=== PATIENT | male | born 1955 | race Caucasian/White ===

== ENCOUNTER 2017-10-27 05:44 | Emergency (ER) | payer MEDICARE ==
[~2017-10-27] VITALS: Ht 172.7 cm; Wt 89.5 kg
[~2017-10-27 05:44] MED LIST: ALBU8.5H8 IH
[2017-10-27] MEDS ORDERED: bacitracin 15gm ointment TP ONE (07:00)
[2017-10-27] MEDS ORDERED: CEPH250T PO (07:01)
[2017-10-27] MEDS ORDERED: HYDR-3965 PO (07:13)
[2017-10-27 07:20] VITALS: BP 167/107
[2017-10-27] MEDS ORDERED: LIDOcaine 1% (10mg/ml) 2ml vial ONE (07:22)
== END 2017-10-27 07:22 | disposition home or self-care (01) ==
LOC: ER 05:45
DX: S61.432A Puncture wound without foreign body of left hand, initial encounter (principal); I10 Essential (primary) hypertension; W45.8XXA Other foreign body or object entering through skin, initial encounter; Y93.89 Activity, other specified; Y92.89 Other specified places as the place of occurrence of the external cause; Y99.8 Other external cause status
CPT/HCPCS: 73130; 99284; J3490

== ENCOUNTER 2018-04-12 10:08 | Emergency (ER) | payer MEDICARE ==
[~2018-04-12] VITALS: Ht 172.7 cm; Wt 95.0 kg
[2018-04-12] MEDS ORDERED: HYDROcodone/acetaminophen 5mg/325mg tablet PO ONE (11:05)
[2018-04-12] MEDS ORDERED: ketorolac trometh inj. 60 MG/2 ML VIAL IM ONE (11:05)
[2018-04-12] MEDS ORDERED: HYDR-565 PO (11:52)
[2018-04-12] MEDS ORDERED: IBUP-1984 PO (11:52)
[2018-04-12 12:26] VITALS: BP 160/72
== END 2018-04-12 12:28 | disposition home or self-care (01) ==
LOC: ER 10:09
DX: M25.551 Pain in right hip (principal); I10 Essential (primary) hypertension; G89.29 Other chronic pain; Z87.442 Personal history of urinary calculi; Z88.8 Allergy status to other drugs, medicaments and biological substances; Z79.899 Other long term (current) drug therapy
CPT/HCPCS: 73502; 96372; 99284; J1885

== ENCOUNTER 2019-03-01 20:43 | Emergency (ER) | payer MEDICARE ==
[~2019-03-01] VITALS: Ht 172.7 cm; Wt 103.0 kg
[2019-03-01 21:26] LABS: BASOPHILS # (AUTO) 0.1 X10'3 (0-0.2); BASOPHILS % (AUTO) 0.5 % (0-1); EOSINOPHILS % (AUTO) 0.2 % (0-6); HEMATOCRIT 43.3 % (42.0-52.0); HEMOGLOBIN 14.7 g/dl (14.0-17.9); LYMPHOCYTES # (AUTO) 1.5 X10'3 (1.1-4.8); LYMPHOCYTES % (AUTO) 13.1 % (21-51); MEAN CORPUSCULAR HGB CONC 33.9 g/dL (33.0-36.5); MEAN CORPUSCULAR VOLUME 88.3 FL (78-98); MEAN PLATELET VOLUME 10.5 FL (7.4-10.4); MONOCYTES % (AUTO) 8.5 % (2-12); NEUTROPHILS # (AUTO) 9.1 X10'3 (1.8-7.7); NEUTROPHILS % (AUTO) 77.7 % (42-75); PLATELET COUNT 156 X10'3 (140-440); RED CELL DISTRIBUTION WIDTH 13.3 % (11.5-14.5); WHITE BLOOD COUNT 11.7 X10'3 (4.5-11.0)
[2019-03-01 21:34] LABS: ALANINE AMINOTRANSFERASE 30 U/L (12-78); ALBUMIN 3.7 G/DL (3.4-5.0); ALBUMIN/GLOBULIN RATIO 1.1 (1.1-1.5); ALKALINE PHOSPHATASE 60 IU/L (46-116); ANION GAP 8 (8-16); ASPARTATE AMINO TRANSFERASE 18 U/L (10-37); BILIRUBIN,TOTAL 0.8 MG/DL (0.1-1.0); BLOOD UREA NITROGEN 16 MG/DL (7-18); BUN/CREATININE RATIO 11.6 (5.4-32.0); CALCIUM 8.7 MG/DL (8.5-10.1); CHLORIDE 102 MMOL/L (99-107); CREATININE 1.38 MG/DL (0.60-1.10); GLUCOSE 123 MG/DL (70-104); INR 1.1 INR; PARTIAL THROMBOPLASTIN TIME 32 SECONDS (22-32); POTASSIUM 3.5 MMOL/L (3.5-5.1); SODIUM 137 MMOL/L (135-145); TOTAL CARBON DIOXIDE 27.2 MMOL/L (24-32); TOTAL PROTEIN 7.1 G/DL (6.4-8.2); eGFR 52 ML/MIN
[2019-03-01] MEDS ORDERED: acetaminophen 325mg tablet PO ONE (21:35)
[2019-03-01] MEDS ORDERED: azithromycin/NS 500mg/250ml 250 ML IV ONE (21:40)
[2019-03-01] MEDS ORDERED: normal saline 1000ML IV soln IVB ONE (21:40)
[2019-03-01] MEDS ORDERED: CefTRIAXone/D5W-Rocephin 1gm 50 ML IV ONE (21:40)
[2019-03-01] MEDS ORDERED: ketorolac tromethamine 15mg/ml inj. IM ONE (23:30)
[2019-03-02 00:34] VITALS: BP 122/67
[2019-03-02] MEDS ORDERED: GUAI237S46 PO (00:35)
[2019-03-02] MEDS ORDERED: AZIT-63 PO (00:35)
[2019-03-02] MEDS ORDERED: BENZ-16 PO (00:35)
[2019-03-02 00:40] LABS: CLARITY,URINE CLEAR (Clear); COLOR,URINE YELLOW (Yellow); GLUCOSE, URINE NEGATIVE (Neg); KETONES,URINE NEGATIVE (Neg); LEUKOCYTE ESTERASE ,URINE NEGATIVE (Neg); NITRITES, URINE NEGATIVE (Neg); OCCULT BLOOD,URINE SMALL (Neg); PROTEIN,URINE NEGATIVE (Neg); UROBILINOGEN,URINE 0.2 E.U/dL (0.2-1.0)
[2019-03-02 00:47] LABS: BACTERIA,URINE NONE SEEN /HPF (Neg); RBC,URINE 0-2 /HPF (0-2); UA COLLECTION TYPE CLN CATCH MIDSTREAM; WBC,URINE NONE SEEN /HPF (0-4)
[2019-03-02 00:48] LABS: SQUAMOUS EPITHELIAL CELL,UR FEW /LPF (FEW)
== END 2019-03-02 00:54 | disposition home or self-care (01) ==
LOC: ER 20:44
DX: J18.1 Lobar pneumonia, unspecified organism (principal); I10 Essential (primary) hypertension; E11.9 Type 2 diabetes mellitus without complications; G89.29 Other chronic pain; K59.00 Constipation, unspecified; R79.1 Abnormal coagulation profile; Z87.442 Personal history of urinary calculi; Z79.899 Other long term (current) drug therapy
CPT/HCPCS: 36415; 71045; 80053; 81001; 83605; 84145; 85025; 85610; 85730; 87040; 87502; 87503; 96365; 96366; 96368; 96372; 99284; J0456; J0696; J1885; J7030

== ENCOUNTER 2020-03-05 00:07 | Emergency (ER) | payer BC, MEDICARE ==
[~2020-03-05] VITALS: Ht 172.7 cm; Wt 100.0 kg
[2020-03-05 00:10] VITALS: BP 184/107
[2020-03-05] MEDS ORDERED: ketorolac trometh inj. 60 MG/2 ML VIAL IM ONE (00:20)
[2020-03-05] MEDS ORDERED: HYDROcodone/acetaminophen 5mg/325mg tablet PO ONE (00:20)
[2020-03-05] MEDS ORDERED: HYDR-4383 PO (00:42)
[2020-03-05] MEDS ORDERED: SENN-263 PO (00:42)
== END 2020-03-05 00:53 | disposition home or self-care (01) ==
LOC: ER 00:08
DX: R07.81 Pleurodynia (principal); I10 Essential (primary) hypertension; E11.9 Type 2 diabetes mellitus without complications; G89.29 Other chronic pain; Z87.442 Personal history of urinary calculi; Z79.899 Other long term (current) drug therapy
CPT/HCPCS: 71101; 96372; 99283; J1885

== ENCOUNTER 2025-02-27 08:47 | Emergency (ER) | payer BC, MEDICARE ==
[~2025-02-27] VITALS: Ht 172.7 cm; Wt 92.0 kg
[~2025-02-27 08:47] MED LIST changes: +ALBU8.5H17 IH; -ALBU8.5H8 IH; +HYDR-4383 PO; +SENN-360 PO
[2025-02-27 12:13] LABS: D-DIMER 0.35 MG/L FEU (0-0.50)
[2025-02-27 12:35] VITALS: BP 122/70; PULSE 61; RESP 16; TEMP 98; O2SAT 96
== END 2025-02-27 12:37 | disposition home or self-care (01) ==
LOC: ER 08:48
DX: M25.462 Effusion, left knee (principal); M25.461 Effusion, right knee; I10 Essential (primary) hypertension; E11.9 Type 2 diabetes mellitus without complications; Z87.442 Personal history of urinary calculi
CPT/HCPCS: 36415; 73564; 73590; 73610; 85379; 99284